=== PATIENT | male | born 1955 | race Caucasian/White ===

== ENCOUNTER 2017-12-16 16:05 | Observation (INO) | payer OTHER ==
[~2017-12-16] VITALS: Ht 180.3 cm; Wt 81.6 kg
[~2017-12-16 16:05] MED LIST: CIPR-173 PO; METR500T PO; NAPR375T27 PO; TADA5TAB11 PO
[2017-12-16 16:45] LABS: Basophils # (auto) 0 uL; Basophils % (auto) 0.7 % (0.0-2.0); Eosinophils # (auto) 0.2 uL; Eosinophils % (auto) 4.6 % (0.0-7.0); Hematocrit 46.5 % (41.0-53.0); Hemoglobin 15.7 g/dL (13.5-17.5); Lymphocytes # (auto) 1.1 uL; Lymphocytes % (auto) 31.4 % (10.0-50.0); Mean Corpuscular Hemoglobin 31.6 pg (28.0-32.0); Mean Corpuscular Hgb Conc. 33.8 g/dL (32.0-36.0); Mean Corpuscular Volume 93.5 fL (80.0-100.0); Monocytes # (auto) 0.4 uL; Monocytes % (auto) 13.3 % (0.0-12.0); Neutrophils # (auto) 1.7 uL; Nucleated Red Blood Cells % 0.4 %; Platelet Count (auto) 204 10^3/uL (140-450); Red Blood Cells 4.97 10^6/uL (4.5-5.90); Red Cell Distribution Width 13.5 % (11.8-14.3); White Blood Cell 3.3 10^3/uL (4.4-10.8)
[2017-12-16 17:06] LABS: Albumin 4.2 g/dL (3.4-5.0); Anion Gap 10 (5-15); BUN/Creatinine Ratio 22.8; Blood Urea Nitrogen 23 mg/dL (7-18); Calcium 8.9 mg/dL (8.5-10.1); Carbon Dioxide 24 mmol/L (21-32); Chloride 104 mmol/L (98-107); GFR African American 96 mL/min; GFR Non-African American 80 mL/min; Glucose 84 mg/dL (74-106); Potassium 4.4 mmol/L (3.5-5.1); Sodium 138 mmol/L (136-145)
[2017-12-16 17:18] LABS: Alanine Aminotransferase 36 U/L (16-61); Alkaline Phosphatase 52 U/L (45-117); Aspartate Aminotransferase 21 U/L (15-37); Bilirubin, Total 1.7 mg/dL (0.2-1.0); Total Protein 7.9 g/dL (6.4-8.2)
[2017-12-16] MEDS ORDERED: IOHEXOL 350 MG/ML 100ML IJ ONE (18:26)
[2017-12-16 18:44] LABS: INR 0.97 (0.9-1.15); Partial Thromboplastin Time 27.3 sec (22.64-33.71); Prothrombin Time 10.6 sec (9.37-12.3)
[2017-12-16 20:55] VITALS: BP 134/80
== END 2017-12-16 21:40 | disposition home or self-care (01) | DRG 313 ==
LOC: ER 16:05 → EDUNIT# 16:05 → OVERFLOW 18:15 → ER 21:39
PROVIDERS: ADMIT Family Medicine; ATTEND Family Medicine
DX: R07.89 Other chest pain (principal); M62.830 Muscle spasm of back; N20.0 Calculus of kidney; R79.1 Abnormal coagulation profile; N40.0 Benign prostatic hyperplasia without lower urinary tract symptoms; Z82.49 Family history of ischemic heart disease and other diseases of the circulatory system; Z79.899 Other long term (current) drug therapy
CPT/HCPCS: 36415; 71275; 80053; 83735; 83880; 84484; 85025; 85379; 85610; 85730; 93005; 99285; G0378; Q9967